=== PATIENT | female | born 1985 | race Hispanic/Latino ===

== ENCOUNTER → 2017-06-21 | Outpatient (CLI) | payer BC | LOC: GMAM 10:22 | PROVIDERS: ATTEND Family Medicine | DX: R07.2 Precordial pain (principal) ==

== ENCOUNTER → 2017-07-12 | Outpatient (CLI) | payer BC ==
--- NOTE | 2017-07-12 17:56 | MRI ---
EXAM DESCRIPTION: Thoracic Spine w/wo Contrast: Magnetic Resonance Imaging. CLINICAL HISTORY: THORACIC RADICULITIS COMPARISON: None. TECHNIQUE: Multiplanar, multiple standard sequences, without and with IV gadolinium contrast, high-field MRI, thoracic spine. FINDINGS: All the discs demonstrate normal signal. Normal contrast enhancement. Disc spaces are preserved. Canal and foramina are patent. Normal enhancement of the nerve roots in the foramina with no impingement. No scoliosis. Facet joints are unremarkable. Normal enhancement. Normal signal in the cord with no compression or edema. Conus terminates at T12-L1 with normal enhancement. Paravertebral soft tissues are unremarkable with normal enhancement. Normal marrow signal in the vertebral bodies and the posterior elements. No abnormal enhancement. Vertebral bodies are not compressed at any level. Posterior midline protrusion of the C5-6 disc abutting the cord. Posterior midline bulges of the C3-4 disc C4-5 disc and C6-7 disc. IMPRESSION: 1. Normal MRI scan of the thoracic spine without and with gadolinium IV contrast. 2. Protrusion of the C5-6 disc abutting the cord. Bulges at other cervical discs. There is evidence of cervical radiculopathy, consider MRI scan of the cervical spine without IV gadolinium contrast. Electronically signed by: Shoaib Babin MD 07/12/2017 5:55 PM CDT Workstation: [id number]
== END ==
LOC: MRI 07:53
PROVIDERS: ATTEND Family Medicine
DX: M54.14 Radiculopathy, thoracic region (principal); M50.222 Other cervical disc displacement at C5-C6 level

== ENCOUNTER → 2017-07-18 | Outpatient (CLI) | payer BC ==
--- NOTE | 2017-07-19 06:52 | MRI ---
EXAM DESCRIPTION: Cervical Spine: MRI. CLINICAL HISTORY: CERVICAL PAIN COMPARISON: MRI Thoracic spine 07/12/2017. TECHNIQUE: Multiplanar MRI, multiple sequences, non-contrast High-field. FINDINGS: C5-6: Minimal disc desiccation. Posterior 3 mm midline disc bulge with annular fissure but not abutting the cord. Moderate canal narrowing. Facets are unremarkable. No neural foraminal narrowing. C4-5: Minimal disc desiccation and disc space maintained with trace posterior bulging. Bilateral small uncinate spurs. Minimal neural foraminal narrowing, with normal facets. Normal signal in the remaining discs with no bulging. Disc spaces preserved. Canal and neural foramina are patent. Facets are normal. No cord compression or cord edema. Spine is neutral position. Atlantoaxial joint is unremarkable. Base of the cerebellar tonsils is at the level of the foramen magnum. Paravertebral soft tissues are negative. Vertebral bodies are not compressed at any level. Normal marrow signal in the remaining vertebral bodies and the posterior elements. IMPRESSION: 1. Posterior midline C5-6 disc bulge but not abutting the cord. No canal or foraminal stenosis. Facets negative. 2. Trace posterior bulge of the C4-5 disc. No canal or foraminal stenosis. Facets negative. Electronically signed by: Shoaib Babin MD 07/19/2017 6:50 AM CDT Workstation: [id number]
== END ==
LOC: MRI 07:07
PROVIDERS: ATTEND Family Medicine
DX: M50.222 Other cervical disc displacement at C5-C6 level (principal)

== ENCOUNTER → 2018-06-10 | Outpatient (CLI) | payer BC ==
--- NOTE | 2018-06-10 19:56 | US ---
EXAM DESCRIPTION: Venous,Lower Extremity RT: ULTRASOUND. CLINICAL HISTORY: LEG SWELLING COMPARISON: None Available. TECHNIQUE: Gagnon-scale and doppler sonographic evaluation of the deep venous system of the right lower extremity. FINDINGS: Doppler evaluation shows normal color flow and normal phasicity and augmentation of the right common femoral vein, femoral vein, popliteal vein, greater/lesser saphenous vein, peroneal, and posterior tibial vein. The right lower extremity deep veins were completely compressible; normal occlusion with transducer pressure. Gagnon-scale survey showed no echogenic thrombus within these veins. Edema in the subcutaneous adipose tissues right calf. IMPRESSION: 1. Duplex ultrasound evaluation of the right lower extremity deep venous system showing no evidence of thrombosis. 2. Edema in the subcutaneous adipose tissues right calf. Electronically signed by: Shoaib Babin MD 06/10/2018 7:53 PM CDT
== END ==
LOC: US 11:08
PROVIDERS: ATTEND Family Medicine
DX: R60.0 Localized edema (principal); M79.89 Other specified soft tissue disorders

== ENCOUNTER → 2018-06-10 | Outpatient (CLI) | payer BC | LOC: GMAM 11:50 | PROVIDERS: ATTEND Family Medicine | DX: R21 Rash and other nonspecific skin eruption (principal) ==

== ENCOUNTER → 2018-06-20 | Outpatient (CLI) | payer BC ==
--- NOTE | 2018-06-20 11:37 | CT ---
EXAM DESCRIPTION: CT ABDOMEN AND PELVIS WITH CONTRAST CLINICAL HISTORY: LEG SWELLING M79.89 COMPARISON: None Available. TECHNIQUE: CT of the abdomen and pelvis are performed during IV bolus administration of 75 mL of Optiray 320. No oral contrast. FINDINGS: In the lower chest, the lung bases are clear. Heart size is normal. CT abdomen The liver, spleen, pancreas, gallbladder, adrenal glands, stomach and kidneys are normal in appearance. No inflammation around the pancreas. No renal stones or hydronephrosis. No bowel dilatation to suggest obstruction. No free air or free fluid. CT pelvis Appendix is surgically absent. No inflammation around the cecum or terminal ileum or sigmoid colon. Bladder and distal ureters are negative for stones. Normal enhancement of pelvic vessels. No inguinal or lower pelvic adenopathy. Uterus and ovaries appear normal. Bone window images are negative for fracture or lytic lesion. Coronal and sagittal reformatted images confirm the findings. IMPRESSION: No acute upper abdominal process. No acute process in the pelvis. This exam was performed according to our departmental dose-optimization program, which includes automated exposure control, adjustment of the mA and/or kV according to patient size and/or use of iterative reconstruction technique. Total DLP equals 246.23 mGycm. Electronically signed by: Wali Guevara MD 06/20/2018 11:34 AM CDT
== END ==
LOC: CT 07:45
PROVIDERS: ATTEND Family Medicine
DX: M79.89 Other specified soft tissue disorders (principal)

== ENCOUNTER → 2018-06-26 | Outpatient (CLI) | payer BC ==
--- NOTE | 2018-06-26 16:28 | MRI ---
EXAM DESCRIPTION: Lumbar Spine w/o Contrast : Magnetic Resonance Imaging. CLINICAL HISTORY: LUMBAR RADICULOPATHY COMPARISON: MR scans of the cervical and thoracic spine 07/12/2017 and 07/18/2017. Radiographs of the thoracic spine 07/04/2017. Radiographs of the lumbar spine 10/31/2017. CT scan of the abdomen 06/20/2018. TECHNIQUE: Multiplanar, multiple standard sequences, non contrast MRI, lumbar spine. FINDINGS: L5-S1: The L5 vertebra is transitional with sacralization of the left transverse process which articulates with the superior left sacral ala and abuts the superior left iliac facet of the SI joint. This is well demonstrated on the recent CT abdomen and pelvis scan. The disc space is imaged on axial T2 series 501, image 3. Sacralized disc space with minimal reduction of disc height. No disc bulging. No endplate changes. Canal and foramina are patent. L4-L5: Normal signal in the disc with disc space preserved. No significant bulging. Canal and foramina are patent. Facet joints and posterior flavum ligaments are unremarkable. L3-L4: Unremarkable. L2-L3: Unremarkable. L1-L2: Unremarkable. T12-L1: Conus terminates at L1. Otherwise unremarkable. Mild L1-L4 levoscoliosis. Paravertebral soft tissues negative. Normal marrow signal in the remaining vertebral bodies and the posterior elements. Vertebral bodies are not compressed at any level. IMPRESSION: 1. 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 Sacralized left transverse process which articulates with the superior left sacral ala and abutting the superior left iliac facet of the SI joints. Canal and foramina are patent. Facet joints are unremarkable. Transitional vertebra can be a focal point for abnormal biomechanics and a source of back pain. 2. Remaining disc and interspaces, facet joints,, negative. No canal or foraminal narrowing. Minimal levoscoliosis. Electronically signed by: Shoaib Babin MD 06/26/2018 4:25 PM CDT
== END ==
LOC: MRI 08:54
PROVIDERS: ATTEND Family Medicine
DX: M54.16 Radiculopathy, lumbar region (principal); M41.86 Other forms of scoliosis, lumbar region